=== PATIENT | male | born 1960 | race Caucasian/White ===

== ENCOUNTER 2018-01-03 21:33 | Inpatient (IN) | payer OTHER, MEDICAID ==
[~2018-01-03] VITALS: Ht 170.2 cm; Wt 50.8 kg
--- NOTE | 2018-01-03 21:46 | NUR ---
BIBA TO ER BED 1
[2018-01-03 21:47] VITALS: BP 81/53
--- NOTE | 2018-01-03 21:50 | NUR ---
Patient being evaluated by DR. HERMOSILLO at bedside.
[2018-01-03] MEDS ORDERED: ALBUTEROL SULFATE/IPRATROPIU 3 ML SOL IH ONE (22:00)
[2018-01-03] MEDS ORDERED: NACL 0.9% 1,000 ML IV ONE (22:00)
[2018-01-03 22:18] LABS: HEMATOCRIT 28.4 % (36-52); HEMOGLOBIN 9.3 g/dL (12.0-18.0); MEAN CORPUSCULAR HEMOGLOBIN 26 pg (27-31); MEAN CORPUSCULAR HGB CONC 33 g/dL (33-37); MEAN CORPUSCULAR VOLUME 80 fL (80-94); PLATELET COUNT (AUTO) 289 K/uL (140-450); RED BLOOD CELL COUNT(AUTO) 3.55 MIL/uL (4.20-6.10); RED CELL DISTRIBUTION WIDTH 18.2 % (11.6-13.7); WHITE BLOOD COUNT (AUTO) 14.3 K/uL (4.8-10.8)
--- NOTE | 2018-01-03 22:23 | NUR ---
57Y/M PT BIBA TO ED WITH C/O SOB, DESTAURATION. PER EMS; PT. WAS FOUND SOB, DESATURATION O2 SAT 83%, PLACE PT. ON NON REBREATHING MASK 15 LPM O2 SAT 95%, BS 130 ONSCENE. HX. HTN, HYPOTHYROIDISM, MENTAL DELAYED, QUADRIPLEGIS, LT. BUTTOCK ULCER S/P I AND D ON LEVOFLOXAXIN AND AUGMENTIN. PT. ALERT, RESPONS TO TOUCH, UNABLE TO MAKE NEEDS KNOWN NOR FOLLOW COMMANDS. RESPIRTAIONS ON NON REBRETAHING MASK 15 LPM, LABORED WITH TACHYPNIA, RR32,O 2 SAT 97%, BL LUNG CLEAR. SKIN WARM AND DRY, BUTTOCK PRESSURE ULCER, COVER WITH DRESSING. ER MD MADE AWARE OF PT. STATUS.
[2018-01-03 22:26] LABS: ANION GAP 15.4 (8-16); CARBON DIOXIDE 22.3 mmol/L (21-32); CREATININE 0.7 mg/dL (0.7-1.3); POTASSIUM 3.7 mmol/L (3.5-5.1)
[2018-01-03] MEDS ORDERED: MEGESTROL 400 MG/10 ML PO (22:30)
[2018-01-03] MEDS ORDERED: LACT-2 PO (22:30)
[2018-01-03] MEDS ORDERED: [UNRECOGNIZED DRUG - OTHER] PO (22:30)
[2018-01-03] MEDS ORDERED: ASCO500T45 PO (22:30)
[2018-01-03] MEDS ORDERED: ALEN70TA1 PO (22:30)
[2018-01-03] MEDS ORDERED: FERR325E14 PO (22:30)
[2018-01-03] MEDS ORDERED: DIT5 PO (22:30)
[2018-01-03] MEDS ORDERED: LEVO250T71 PO (22:30)
[2018-01-03] MEDS ORDERED: TRAZ-286 PO (22:30)
[2018-01-03] MEDS ORDERED: CALC-1214 PO (22:30)
[2018-01-03] MEDS ORDERED: SYN.05 PO (22:30)
[2018-01-03] MEDS ORDERED: LUBI24SG4 PO (22:30)
[2018-01-03] MEDS ORDERED: AUGMENTIN PO (22:30)
[2018-01-03] MEDS ORDERED: BACL10TA4 PO (22:30)
[2018-01-03] MEDS ORDERED: CRAN450C PO (22:30)
[2018-01-03] MEDS ORDERED: LOV40I SUBQ (22:30)
[2018-01-03] MEDS ORDERED: METO25TA PO (22:30)
[2018-01-03 22:32] LABS: ALBUMIN 2.4 g/dL (3.4-5.0); TOTAL BILIRUBIN 0.3 mg/dL (0.0-1.0)
[2018-01-03 22:41] LABS: LYMPHOCYTES % (MANUAL) 4 % (20-46); MONOCYTES % (MANUAL) 1 % (5-12)
--- NOTE | 2018-01-03 23:10 | NUR ---
STRAIGHT CATH FOR UA. PT. HAVE SMALL BM.
[2018-01-03 23:28] LABS: APPEARANCE,URINE CLEAR (CLEAR); BILIRUBIN,URINE NEGATIVE (NEGATIVE); BLOOD, URINE NEGATIVE (NEGATIVE); COLOR,URINE YELLOW (YELLOW); LEUKOCYTE ESTERASE ,URINE NEGATIVE (NEGATIVE); NITRITE, URINE NEGATIVE (NEGATIVE); UGLUCOSE NEGATIVE (NEGATIVE)
--- NOTE | 2018-01-03 23:36 | NUR ---
BP 81/51 P107, DR. HERMOSILLO MADE AWARE, NEW ORDER RECIEVED; NSS 1000 ML IV WIDE OPEN.
[2018-01-04] MEDS ORDERED: PIPERACILLIN/TAZOBACTAM 4.5 GM in DEXTROSE 5% 100 ML IV ONE (00:10)
[2018-01-04] MEDS ORDERED: PIPERACILLIN/TAZOBACTAM 2.25 GM VIAL IV ONE (00:12)
[2018-01-04] MEDS ORDERED: NACL 0.9% 1,000 ML IV ONE (00:15)
--- NOTE | 2018-01-04 00:36 | NUR ---
Patient appears to be resting comfortably in bed. Vital Signs within normal limits. Respirations even and unlabored.
[2018-01-04] MEDS ORDERED: ACETAMINOPHEN 325 MG TAB PO PRN (02:10)
[2018-01-04] MEDS ORDERED: HYDROcodone/APAP 7.5/325 MG 1 TAB PO PRN (02:10)
[2018-01-04] MEDS ORDERED: ONDANSETRON 4 MG/2 ML VIAL IVP PRN (02:10)
[2018-01-04] MEDS ORDERED: PIPERACILLIN/TAZOBACTAM 3.375 GM in DEXTROSE 5% 50 ML IV ONE ×2 (02:20→06:00)
[2018-01-04 02:35] VITALS: BP 115/69
--- NOTE | 2018-01-04 02:35 | NUR ---
Patient will be admitted to care of . Admited to TELEMETRY. Will go to [id number]. Belongings list completed. Report to MICHAEL REARDON.
--- NOTE | 2018-01-04 02:36 | NUR ---
RECEIVED FROM ER PER BRENDA PT. DX. OF SEPSIS DECUBITUS. MENTALLY CHALLENGED MALE , 57 YEARS OLD, APHASIC WITH IVF SITE TO LEFT FOREARM # 18. INTACT AND WITH GOOD BLOOD RETURN. ON 02 AT 15 FLOW RATE WITH 02 SAT 100 % ON NRM. AFEBRILE. NEEDS WILL BE ANTICIPATED AND WILL BE MET. WILL BE TURNED Q 2H. TOTAL CARE. HX. OF QUADRAPLEGIA, HTN , THYROID DSE. DECUBITUS TO LEFT HIP AND LEFT BUTTOCK. TELEMETRY MONITORING. LOW ST IN FLORAL DEPARTMENT SPECIALIST. PT. AWAKE AND OPENS EYES. MRSA NARES SPECIMEN COLLECTED. NO NOTED ADVERSE REACTIONS TO IVF ANTIBIOTIC GIVEN IN ER.
[2018-01-04 02:42] LABS: CHOL/HDL RATIO 3.6 (1-4.5); FREE T4 (FREE THYROXINE) 1.19 ng/dL (0.76-1.46); MAGNESIUM 1.7 mg/dL (1.8-2.4); PHOSPHORUS 3.3 mg/dL (2.5-4.9); THYROID STIMULATING HORMONE 3.22 uIU/mL (0.34-3.74)
--- NOTE | 2018-01-04 04:00 | NUR ---
PT. NOTED WITH REDNESS TO SCAPULAR RIGHT SIDE AREA, LATERAL RIGHT FOOT REDNESS AND LEFT HEEL REDNESS. PICTURES TAKEN. MADE CHARGE NURSE AWARE OF IT. TURNED TO SIDES Q 2H AND PILLOW SUPPORT TO PRESSURE AREAS.
[2018-01-04] MEDS ORDERED: ALBUTEROL SULFATE/IPRATROPIU 3 ML SOL IH PRN (04:20)
--- NOTE | 2018-01-04 04:30 | NUR ---
SPOKE WITH DR. ACOSTA ON PATIENT MENTAL STATUS THAT PATIENT WILL NOT BE UNABLE TO PERFORM INCENTIVE SPIROMETER AND STATED HE WILL D/C ORDER FOR INCENTIVE SPIROMETER
--- NOTE | 2018-01-04 04:30 | NUR ---
INFORMED MD RESIDENT FOR DVT SCORING . AWARE AND STATED THAT HE WILL ORDER HEPARIN SQ.
[2018-01-04 04:52] LABS: PROTHROMBIN TIME 12.4 secs (10.8-13.4)
[2018-01-04] MEDS: NACL 0.9% 1,000 ML IV SCH ×2 (05:18→15:26)
[2018-01-04] MEDS ORDERED: PIPERACILLIN/TAZOBACTAM 3.375 GM VIAL IV ONE ×2 (05:20→05:21)
[2018-01-04] MEDS: LEVOTHYROXINE 0.05 MG TAB PO SCH (05:36)
[2018-01-04] MEDS ORDERED: ALENDRONATE SODIUM 70 MG TAB PO SCH (06:30)
[2018-01-04] MEDS: ALBUTEROL SULFATE/IPRATROPIU 3 ML SOL IH SCH ×3 (06:54→18:57)
--- NOTE | 2018-01-04 07:36 | NUR ---
ENDORSED TO THE NEXT RN FOR CONTINUITY OF CARE. ON BREATHING TREATMENTS. NEEDS ALL ANTICIPATED AND MET. TELEMETRY MONITORING.
--- NOTE | 2018-01-04 07:36 | NUR ---
RECEIVED REPORT FROM CENTER RECEPTIONIST NURSE CARON AT BEDSIDE FOR CONTINUITY OF CARE. PT IS AWAKE AND APHASIC. CURRENTLY GETTING BREATHING TX FROM RT. O2 SAT 100% ON NONREBREATHER MASK 15L/MIN. PT HAS PRODUCTIVE COUGH. DRESSING TO LEFT HIP DRY AND INTACT. REDNESS TO R SHOULDER, SACRAL REDNESS AND R LATERAL FOOT REDNESS NOTED. SKIN IS WARM AND DRY. ON NS @ 75ML/HR IV TO L HAND 18G INTACT. NO SIGNS OF RESPIRATORY DISTRESS. WILL CONTINUE TO MONITOR.
[2018-01-04 08:00] VITALS: BP 124/77
[2018-01-04] MEDS: DOCUSATE SODIUM 100 MG GELCAP PO SCH ×2 (09:00→21:00)
[2018-01-04] MEDS: BACLOFEN 10 MG TAB PO SCH ×2 (09:00→21:00)
[2018-01-04] MEDS: LACTOBACILLUS RHAMNOSUS GG 1 EACH CAP PO SCH (09:00)
[2018-01-04] MEDS: FERROUS SULFATE 325 MG TABEC PO SCH (09:00)
[2018-01-04] MEDS: METOPROLOL 25 MG TAB PO SCH ×2 (09:00→21:00)
[2018-01-04] MEDS: ASCORBIC ACID 500 MG TAB PO SCH (09:00)
--- NOTE | 2018-01-04 09:00 | NUR ---
PATIENT HAS BEEN SCREENED AND CATEGORIZED HIGH NUTRITION RISK. PATIENT WILL BE SEEN WITHIN 1-2 DAYS OF ADMISSION. 01/04/19-01/05/[address]
[2018-01-04] MEDS: ENOXAPARIN 40 MG/0.4 ML SYR SUBQ SCH (10:22)
--- NOTE | 2018-01-04 10:22 | NUR ---
NON-ADMINISTERED PO MEDS. OPENED MEDS AND CRUSHED PILLS BUT PT UNABLE TO TAKE MEDS MEDS. PT IS AWAKE AND NONVERBAL. RESTING COMFORTABLY IN BED NOW. WILL CONTINUE TO MONITOR.
--- NOTE | 2018-01-04 10:30 | NUR ---
WOUND CARE EVALUATION NOTES: REASON FOR EVALUATION: PRESSURE ULCERS COMPLETE SKIN ASSESSMENT BY 2 RN IS DONE ON THIS 57Y/O MALE PATIENT [place] [facility] [place] [facility], WITH INITIAL DIAGNOSIS OF HYPOXIA. 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 ALL ABOVE INFORMATION WAS OBTAINED FROM THE ADMISSION H&P. LABS ARE WBC 14.3, H/H 9.3/28.4, GLUCOSE 133, ALBUMIN 2.4. PATIENT IS AWAKE, SKIN WARM TO TOUCH WNL, THICKENED TOENAILS, NO EDEMA, NO HAIR GROWTH AND BILATERAL PEDAL PULSES PRESENT. BLE CONTRACTURES , INCONTINENT BOWEL AND BLADDER, NEEDS ASSISTANCE IN TURNING. PLAN OF CARE AND PRESSURE PREVENTIVE MEASURES DISCUSSED WITH PRIMARY RN. INTEGUMENTARY: -BILATERAL HEELS BLANCHABLE REDNESS -RIGHT EAR PU STAGE 1, NON-BLANCHABLE REDNESS -SACRALCOCCYX PU STAGE 1, NON-BLANCHABLE REDNESS 2X3 CM -RIGHT POSTERIOR SHOULDER PU STAGE 2, 2 PARTIAL THICKNESS LOSS OF DERMIS WITH LARGEST 1.5X1.5 X0.1 CM WOUND BED PINK, DRY, NO ODOR, SURROUNDING REDNESS 5X5CM REDNESS -LEFT SCAPULAR PU UN-STAGEABLE, 2X3CM WITH 90% YELLOW SLOUGH, SMALL AMOUNT PURULENT DRAINAGE, NO ODOR, SURROUNDING REDNESS 3X4 CM -LEFT TROCHANTER PU UN-STAGEABLE, 7.5X7 CM DEPTH UTD, WOUND BED WITH 100% OF BROWN, YELLOW SLOUGH COVERED, WOUND EDGE TO 1 O'CLOCK ESCHAR TISSUE, UNDERMINING BETWEEN 4-9 O'CLOCK WITH DEEPEST AT 7 O'CLOCK 1CM DEEP, SMALL AMOUNT PURULENT DRAINAGE, NO ODOR, SURROUNDING REDNESS 9X8 CM INDICATED FURTHER DAMAGE RECOMMENDATIONS: -SURGEON TO CONSULT FOR DEBRIDEMENT -WOUND CULTURE -APPLY HYDRAGUARD TO RIGHT EAR AND BILATERAL HEELS BLANCHABLE REDNESS BID WC -CLEANSE SACRALCOCCYX PU WITH SOAP AND WATER, PAT DRY AND APPLY OPTIFORM Q7 DAYS AND PRN IF SOILING -CLEANSE RIGHT POSTERIOR SHOULDER PU WITH NS, PAT DRY, APPLY OPTIFORM Q 7 DAYS AND PRN IF SOILING -CLEANSE LEFT SCAPULAR PU WITH NS, PAT DRY, APPLY THERAHONEY GEL, COVER WITH ADAPTIC, AND DRY DRESSING SECURE WITH TAPE Q DAY AND PRN IF SOILING -CLEANSE LEFT TROCHANTER PU WITH NS AND GAUZE, PAT DRY, APPLY THERAHONEY GEL, COVER WITH ADAPTIC AND DRY DRESSING SECURE WITH TAPE Q DAY AND PRN IF SOILING -TURN AND REPOSITION PATIENT Q2H AND OFFLOAD RIGHT EAR AND LEFT HIP -ASSESS AND MONITOR SKIN CONDITION DURING POSITION CHANGE, PLEASE PAY ATTENTION TO RIGHT EAR, SACRALCOCCYX, LEFT HIP AND HEELS -OFFLOAD BILATERAL HEELS BY PLACING PILLOWS UNDER CALVES AT ALL TIMES, UNLESS OTHERWISE CONTRAINDICATED -PRESSURE REDISTRIBUTION SURFACE THERAPY -KEEP SKIN CLEAN AND DRY AT ALL TIMES. -RD TO CONSULT RECOMMENDATIONS DISCUSSED WITH PRIMARY RN WILL FOLLOW UP PATIENT Q 7 -10 DAYS AND PRN. PLEASE CONTACT WOUND CARE NURSE FOR ANY CONCERNS AND CHANGES IN WOUND CONDITION
[2018-01-04 12:00] VITALS: BP 94/56
[2018-01-04] MEDS: PIPER/TAZO 3.375GM/D5W PREMIX 50 ML IV SCH ×2 (12:36→21:34)
--- NOTE | 2018-01-04 12:39 | NUR ---
01/04/2018 RD INITIAL ASSESSMENT COMPLETED PLEASE REFER TO NUTRITION ASSESSMENT UNDER CARE ACTIVITY FOR ESTIMATED NUTRITIONAL NEEDS. 1.NURSING TO ASSIST WITH MEALS. 2.REGULAR DIET, BOOST TID WHEN MEDICALLY APPROPRIATE. 3.SWALLOW EVAL TO DETERMINE APPROPRIATE TEXTURES/ THICKNESS OF FOODS. 4.MAY BENEFIT FROM MULTIVITAMIN WELL TO PROMOTE WOUND HEALING. 5.PT WILL BENEFIT FROM SERRANO RESUMPTION OF PO INTAKE SOON MEDICALLY APPROPRIATE. RD TO FOLLOW-UP IN 2-3 DAYS PATIENT IS HIGH RISK. LUBNA TAM RD
--- NOTE | 2018-01-04 12:40 | NUR ---
SATURATION 100% ON SUPPLEMENTAL OXYGEN AT 15 LPM VIA NONREBREATHER POST HHN THERAPY TITRATED FIO2 TO 50% VIA VENTI MASK MANAGER SCIENCE TO MONITOR LORRAINE/MICHAEL HOFFMAN
--- NOTE | 2018-01-04 12:48 | NUR ---
SATURATION 98% ON SUPPLEMENTAL OXYGEN AT 15 LPM VIA VENT MASK ANIMAL SURGEON WILL CONTINUE TO MONITOR LORRAINE/RN NOTIFIED
--- NOTE | 2018-01-04 13:30 | NUR ---
MADE DR. CONWAY AWARE UNABLE TO TEST IF PT CAN TOLERATE FLUIDS OR MEDS PO. STILL PENDING SWALLOW EVAL. EXAMINED PT'S WOUNDS AFTER WOUND EVAL DONE.
--- NOTE | 2018-01-04 13:43 | NUR ---
SATURATION 98% ON SUPPLEMENTAL OXYGEN 15 LPM VIA VENTI MASK TITRATED FIO2 TO 40%/12 LPM LORRAINE/RN NOTIFIED
--- NOTE | 2018-01-04 15:03 | NUR ---
TRANSFERRED PT TO WOUND BED. REPOSITIONED PT TO RIGHT LATERAL. CHANGED DRESSING TO RIGHT SCAPULA AND UPPER BACK TO OPTIFOAM DRESSING. NO SIGNS OF RESPIRATORY DISTRESS. PT SLEEPING IN BED. WILL CONTINUE TO MONITOR.
[2018-01-04] MEDS ORDERED: FERRIC GLUCONATE 125 MG in NACL 0.9% 100 ML IV SCH (15:18)
[2018-01-04] MEDS ORDERED: MAG SULF 2000 MG/WATER PREMIX 100 ML IV SCH (15:27)
[2018-01-04] MEDS ORDERED: LIDOCAINE 1% ***ER ONLY *** 10 MG/ML VIAL INJ SCH (15:42)
[2018-01-04 16:00] VITALS: BP 116/67
--- NOTE | 2018-01-04 16:22 | NUR ---
SPEECH THERAPY DISCUSSED PT WITH NURSING (MICHAEL PETERS) AND CLEARED FOR SWALLOW EVAL. TRIALED HTL, NTL AND PUREE TEXTURES WITH PT VIA SPOON USING SMALL BITES/SIPS. DESPITE USE OF SAFE SWALLOW STRATEGIES, PT HAD OVERT S/S OF ASPIRATION (COUGHING) FOLLOWING ALL TRIALS/CONSISTENCIES. RECOMMEND NPO AT THIS TIME. CONSIDER ALTERNATIVE MEANS OF NUTRITION/HYDRATION. [id number] [id number] NOMS LEVEL 1 [id number]
--- NOTE | 2018-01-04 17:00 | NUR ---
DR. ALONZO CALLED. RECEIVED ORDER TO OBTAIN CONSENT FOR DEBRIDEMENT OF LEFT TROCHANTERIC DECUBITUS ULCER AND PLACE PT NPO AFTER MIDNIGHT.
--- NOTE | 2018-01-04 17:40 | NUR ---
CALLED (WEBFED OFFSET PRESS OPERATOR FROM [facility]) [phone] AND LEFT MESSAGE TO OBTAIN CONSENT AND PT HX. LEFT CALL BACK NUMBER.
--- NOTE | 2018-01-04 19:30 | NUR ---
ENDORSED PT TO PHOTO RETOUCHER NURSE ARVIN AT BEDSIDE FOR CONTINUITY OF CARE. PT IN STABLE CONDITION.
--- NOTE | 2018-01-04 19:31 | NUR ---
RECEIVED BEDSIDE REPORT FROM DAY SHIFT NURSE LORRAINE RN, PT STABLE, NO DISTRESS NOTED, IV TO L HAND 18 G RUNNING MAGNESIUM AT 25ML/HR, INFUSING WELL, PT ON REBREATHER MASK WITH 35% FiO2, NO SOB, DRESSINGS INTACT, INITIAL ASSESSMENT DONE, ALL SAFETY PRECAUTION MET, WILL CONTINUE TO MONITOR.
[2018-01-04 20:00] VITALS: BP 113/56
[2018-01-04] MEDS: OXYBUTYNIN 5 MG TAB PO SCH (21:00)
[2018-01-04] MEDS: traZODone 50 MG TAB PO SCH (21:00)
--- NOTE | 2018-01-04 21:34 | NUR ---
DUE MEDICATION GIVEN, PT TOLERATED WELL, PO MEDICATION NOT GIVEN, PT WAS NOT ABLE TO SWALLOW, PT DID NOT PASS SWALLOW EVAL, PO MEDICATION HELD. PT STABLE, NO DISTRESS NOTED, CALL LIGHT WITHIN REACH, WILL CONTINUE TO MONITOR.
--- NOTE | 2018-01-04 21:45 | NUR ---
DR. ALONZO SAW PT, ATTEMPTED TO CALL SISTER NGOZI AT [phone] WAS TOLD THAT IT IS THE WRONG NUMBER, ATTEMPTED TO CALL [facility], [facility] SAID THAT THEY DON'T HAVE HIS CHART AND WOULD NOT BE ABLE TO GIVE THE CONSENT.
--- NOTE | 2018-01-04 23:40 | NUR ---
CHECKED ON PT, PT AWAKE, NO DISTRESS NOTED, CALL LIGHT WITHIN REACH, WILL CONTINUE TO MONITOR.
[2018-01-05] VITALS: BP 100/59
[2018-01-05] MEDS: NACL 0.9% 1,000 ML IV SCH ×2 (01:48→18:06)
--- NOTE | 2018-01-05 01:48 | NUR ---
IV FLUID CHANGED, PT AWAKE, STABLE, NO DISTRESS NOTED, CALL LIGHT WITHIN REACH, WILL CONTINUE TO MONITOR.
[2018-01-05 04:00] VITALS: BP 108/61
[2018-01-05] MEDS: PIPER/TAZO 3.375GM/D5W PREMIX 50 ML IV SCH ×3 (04:48→20:58)
--- NOTE | 2018-01-05 04:48 | NUR ---
DUE MEDICATION GIVEN, PT TOLERATED WELL, NO DISTRESS NOTED, CALL LIGHT WITHIN REACH, WILL CONTINUE TO MONITOR.
--- NOTE | 2018-01-05 05:36 | NUR ---
SYNTHROID PO NOT GIVEN, PT UNABLE TO SWALLOW, PT STABLE, NO DISTRESS NOTED, CALL LIGHT WITHIN REACH WILL CONTINUE TO MONITOR./
[2018-01-05] MEDS: LEVOTHYROXINE 0.05 MG TAB PO SCH (05:51)
[2018-01-05 06:49] LABS: BASOPHILS % (AUTO) 0.3 % (0.0-2.0); EOSINOPHILS # (AUTO) 0.2 K/uL (0-0.4); HEMOGLOBIN 8.1 g/dL (12.0-18.0); LYMPHOCYTES # (AUTO) 0.7 K/uL (2.0-11.5); LYMPHOCYTES % (AUTO) 9.5 % (20.5-51.1); MEAN CORPUSCULAR HEMOGLOBIN 27 pg (27-31); MEAN CORPUSCULAR HGB CONC 33 g/dL (33-37); MEAN CORPUSCULAR VOLUME 82 fL (80-94); MONOCYTES # (AUTO) 0.5 K/uL (0.8-1.0); MONOCYTES % (AUTO) 6.5 % (1.7-9.3); NEUTROPHILS # (AUTO) 6.2 K/uL (1.8-7.7); NEUTROPHILS % (AUTO) 80.7 % (42.2-75.2); PLATELET COUNT (AUTO) 263 K/uL (140-450); RED BLOOD CELL COUNT(AUTO) 3.06 MIL/uL (4.20-6.10); RED CELL DISTRIBUTION WIDTH 18.3 % (11.6-13.7); WHITE BLOOD COUNT (AUTO) 7.6 K/uL (4.8-10.8)
--- NOTE | 2018-01-05 07:30 | NUR ---
ENDORSED PLAN OF CARE TO DAY SHIFT NURSE SCOUT RODRIGUEZ, PT STABLE, NO DISTRESS NOTED, CALL LIGHT WITHIN REACH.
--- NOTE | 2018-01-05 07:35 | NUR ---
RECEIVED REPORT FROM ADMITTING CLERK NURSE. PT IS SLEEPING IN BED AT THIS TIME, BUT EASILY AWAKEN, PT IS AAOX1, APHASIC, BEDBOUND, PT HAS IV ON THE HIS LEFT HAND, IV APPEARS TO BE INFILTRATED, HAND IS SWOLLEN, WILL DC IV AT THIS TIME AND INSERT A NEW IV. PT HAS KARTHIK UPPER AND LOWER EXT. CONTRACTURES, PT IS ON A VENTURI MASK, PT HAS A LEFT TROCHANTER DECUBITUS WOUND, SACRAL REDNESS, LEFT SCAPULA PRESSURE ULCER, RIGHT SHOULDER PRESSURE ULCER, RIGHT FOOT ERYTHEMA AND RIGHT EAR WOUND RETORT KILN BURNER, NO S/S OF RESPIRATORY DISTRESS OR DISCOMFORT NOTED, SAFETY/FALL PRECAUTIONS ARE IN PLACE, CALL LIGHT IS WITHIN REACH, WILL CONTINUE TO MONITOR.
[2018-01-05 08:00] VITALS: BP 132/74
--- NOTE | 2018-01-05 08:09 | NUR ---
FIO2 TITRATED TO 30% VENTURI MASK, SPO2 96%. PT IS NOT SOB AND NOT IN RESPIRATORY DISTRESS. WILL CONTINUE TO MONITOR.
[2018-01-05 08:12] LABS: ANION GAP 14.3 (8-16); CARBON DIOXIDE 22.9 mmol/L (21-32); POTASSIUM 3.2 mmol/L (3.5-5.1)
[2018-01-05 08:13] LABS: CREATININE 0.5 mg/dL (0.7-1.3)
[2018-01-05] MEDS: ALBUTEROL SULFATE/IPRATROPIU 3 ML SOL IH SCH ×3 (08:16→20:05)
[2018-01-05 08:42] LABS: MAGNESIUM 2.9 mg/dL (1.8-2.4); PHOSPHORUS 2.4 mg/dL (2.5-4.9)
[2018-01-05] MEDS: DOCUSATE SODIUM 100 MG GELCAP PO SCH ×2 (09:00→21:00)
[2018-01-05] MEDS: LACTOBACILLUS RHAMNOSUS GG 1 EACH CAP PO SCH (09:00)
[2018-01-05] MEDS: BACLOFEN 10 MG TAB PO SCH ×2 (09:00→21:00)
[2018-01-05] MEDS: METOPROLOL 25 MG TAB PO SCH ×2 (09:00→21:00)
[2018-01-05] MEDS: ENOXAPARIN 40 MG/0.4 ML SYR SUBQ SCH (09:00)
[2018-01-05] MEDS: ASCORBIC ACID 500 MG TAB PO SCH (09:00)
--- NOTE | 2018-01-05 09:00 | NUR ---
NEW IV INSERTED ON THE RIGHT WRIST, GAUGE 22, PT TOLERATED WELL, IV FLUSHING WELL, BLOOD RETURN. WILL CONTINUE TO MONITOR.
[2018-01-05] MEDS: FERROUS SULFATE 325 MG TABEC PO SCH (09:14)
--- NOTE | 2018-01-05 10:35 | NUR ---
PT TAKEN OFF OF VENTURI MASK AND PLACED 2L NC ON PT. SPO2 98%. PT IS NOT SOB AND NOT DEMONSTRATING ANY SIGNS/SYMPTOMS OF RESPIRATORY DISTRESS. WILL CONTINUE TO MONITOR.
--- NOTE | 2018-01-05 10:37 | NUR ---
CALLED THE PATIENT'S SISTER FAROOQ AT THE NEW NUMBER I WAS GIVEN . I REACHED HER VOICEMAIL, I LEFT HER A MESSAGE LETTING HER KNOW I WAS CALLING FROM [facility]. I LEFT HER THE NUMBER TO SHE NURSES STATION AND MY EXTENSION. I LET HER KNOW IT WAS REGARDING OBTAINING A CONSENT FOR WOUND DEBRIDEMENT.
[2018-01-05 12:00] VITALS: BP 134/65
--- NOTE | 2018-01-05 12:00 | NUR ---
PT RESTING IN BED, NO S/S OF RESPIRATORY DISTRESS OR DISCOMFORT NOTED, CALL LIGHT WITHIN REACH.
[2018-01-05] MEDS ORDERED: POTASSIUM CHLORIDE 40 MEQ, LIDOCAINE 1% 25 MG in NACL 0.9% 250 ML IV SCH (12:30)
--- NOTE | 2018-01-05 13:12 | NUR ---
CM NOTE CHART REVIEWED FOR ADMISSION CRITERIA. PER [facility]# [phone] , PATIENT CAN GO TO [address] BLAIR WHEN DISCHARGED IF WITH NO ISOLATION.
--- NOTE | 2018-01-05 13:30 | NUR ---
PT DUE MEDICATION GIVEN, PT TURNED FOR COMFORT, ALL NEEDS MET AT THIS TIME, CALL LIGHT WITHIN REACH, WILL CONTINUE TO MONITOR.
--- NOTE | 2018-01-05 13:56 | NUR ---
I SPOKE TO THE PATIENT'S SISTER FAROOQ, SHE GAVE ME HER CELL PHONE NUMBER [phone]. I LET HER KNOW I WAS CALLING TO OBTAIN CONSENT FOR A DEBRIDEMENT AND A PEG TUBE. PER FAROOQ THE PATIENT ALREADY HAD A DEBRIDEMENT DONE LAST WEEK AT [facility] BY DR. PRETTY. FAROOQ SAID TO HOLD OFF ON THE CONSENT BECAUSE HE DID NOT NEED IT AND WOULD BE COMING IN TO SEE THE PATIENT TOMORROW.
--- NOTE | 2018-01-05 14:10 | NUR ---
I LET DR. CONWAY KNOW I HAD SPOKEN TO THE PATIENT'S SISTER FAROOQ. I ALSO LET HIM KNOW I WAS TOLD TO HOLD OFF ON THE CONSENTS AND PATIENT'S SISTER SAID SHE WOULD BE COMING IN TOMORROW, 01/06/18. I WENT AHEAD AND GAVE DR. CONWAY AND DR. JANA TRIVEDI'S CELL PHONE NUMBER [phone].
--- NOTE | 2018-01-05 15:30 | NUR ---
utility worker roller shop notes: I contacted Patient's SNF([facility])to gather information about patient. I spoke to Shyanne who stated that patient is a new resident from [facility] ([facility]) and there was limited information that can provide at that time; she also stated that Patient has just arrived to [facility] on 01/03/18 from a previous placement at [place] "[facility]" where he resided from about 2 years and recently had to be move due to increase level of care needed for patient. [facility] Shyanne stated that patient is on a 7 day bed hold and will able to return to facility when patient is stable and ready for discharge. I asked for family information and I was provided with Patient's sister Veronica Hicks I thank [facility] staff for information and ended the call.
[2018-01-05 16:00] VITALS: BP 122/59
--- NOTE | 2018-01-05 16:00 | NUR ---
PT RESTING IN BED AT THIS TIME, PT TURNED FOR COMFORT, NO S/S OF RESPIRATORY DISTRESS OR DISCOMFORT NOTED, CALL LIGHT WITHIN REACH.
--- NOTE | 2018-01-05 16:10 | NUR ---
I contact Patient's sister Veronica Hicks who stated been Patient's healthcare decision maker and having a power of student life coordinator. I introduce My self and role as a Film Processing Utility Worker and gather information about Patient. Per Mrs. Hicks Patient has been in the system since he was a minor; Due to his disabilities and their mother been unable to care for Patient. He was placed on a senior living in [facility] and stay there for many years until moved to the senior living in [place] by his "Crew Chief" Patient's sister stated been unsure if patient has [facility] and was unable to provide the spring encaser. Mrs. Hicks however; stated that she can has power of student life coordinator and can make medical decisions for her brother. She agreed to provide documentation and ask nurses to place on chart. Patient's sister reported that she is care giving for their mother who also disable and needs care and she is unable to do the same for patient at this time however; still visit's him when she is able. She reported coming to see patient at [facility]. Per Patient's sister patient will return to current facility [facility] after his discharge. Patient's sister had no questions at the time. Crew Chief and/or community outreach manager will follow up as needed.
--- NOTE | 2018-01-05 18:44 | NUR ---
PT RESTING IN BED, CALL LIGHT WITHIN REACH.
[2018-01-05] MEDS: MUPIROCIN 2% OINT 22 GM TUBE TP SCH (19:00)
--- NOTE | 2018-01-05 19:12 | NUR ---
ENDORSED PT TO INDUSTRIAL/ORGANIZATIONAL PSYCHOLOGIST NURSE FOR CONTINUITY OF CARE. PT STABLE AT THIS TIME.
--- NOTE | 2018-01-05 19:20 | NUR ---
RECEIVED REPORT FROM AM NURSE. PT RESTING IN BED, AWAKE, APHASIC, UNABLE TO VERBALIZE NEEDS, BEDBOUND, SPASTIC CONTRACTURES ALL EXTREMITIES NOTED. SYSTEMS INTEGRATION MANAGER IN PLACE. SPO2 97% ON ROOM AIR, RR 20 EVEN AND UNLABORED. SEE WOUND ASSESSMENT FOR WOUNDS. SCDs IN PLACE. BL HEEL PROTECTORS IN PLACE. IV ACCESS ASYMPTOMATIC, PATENT AND INTACT. IVF INFUSING WELL. ALL NEEDS MET. SAFETY MEASURES ENSURED. CALL LIGHT WITHIN REACH.
[2018-01-05] MEDS: CHLORHEXADINE GLUC 2% CLOTH TP SCH (19:45)
[2018-01-05 20:00] VITALS: BP 123/70
[2018-01-05] MEDS: traZODone 50 MG TAB PO SCH (21:00)
[2018-01-05] MEDS: OXYBUTYNIN 5 MG TAB PO SCH (21:00)
--- NOTE | 2018-01-05 21:01 | NUR ---
HELD DUE PO MEDS D/T DYSPHAGIA AND PT NPO. ADMINISTERED DUE MED ZOSYN IVPB WITH EDUCATION. PT APHASIC, WILL CONTINUE WITH CONSTANT REINFORCEMENT. ALL NEEDS MET. SAFETY MEASURES ENSURED. CALL LIGHT WITHIN REACH.
[2018-01-06] VITALS: BP 130/71
--- NOTE | 2018-01-06 00:30 | NUR ---
PT CLEAN AND DRY, PT TURNED AND REPOSITIONED WITH PRACTICE OFFICE ASSOCIATE, OFFLOADED PRESSURE AREAS. SPO2 99% ON ROOM AIR, RR 22. ALL NEEDS MET. IVF INFUSING WELL. SAFETY MEASURES ENSURED. CALL LIGHT WITHIN REACH.
[2018-01-06 04:00] VITALS: BP 107/60
[2018-01-06] MEDS: PIPER/TAZO 3.375GM/D5W PREMIX 50 ML IV SCH ×3 (04:43→20:20)
--- NOTE | 2018-01-06 04:45 | NUR ---
ADMINISTERED DUE MED ZOSYN IVPB. PT CLEAN AND DRY, PT TURNED AND REPOSITIONED, OFFLOADED PRESSURE AREAS WITH ANIMAL PATHOLOGY TEACHER, PT TOLERATED WELL.ALL NEEDS MET. IVF INFUSING WELL. SAFETY MEASURES ENSURED. CALL LIGHT WITHIN REACH.
[2018-01-06] MEDS: LEVOTHYROXINE 0.05 MG TAB PO SCH (05:44)
[2018-01-06] MEDS: ALBUTEROL SULFATE/IPRATROPIU 3 ML SOL IH SCH ×3 (06:44→19:08)
--- NOTE | 2018-01-06 06:50 | NUR ---
PT HAD NO URINE OUTPUT DURING SHIFT, BLADDER SCAN PERFORMED, READING >880ML. SPOKE WITH DR TOLLIVER, MADE MD AWARE, MD TO ORDER STRAIGHT CATH.
[2018-01-06 07:11] LABS: BASOPHILS # (AUTO) 0.1 K/uL (0.00-0.22); BASOPHILS % (AUTO) 0.7 % (0.0-2.0); EOSINOPHILS # (AUTO) 0.4 K/uL (0-0.4); EOSINOPHILS % (AUTO) 4.3 % (0.0-4.0); HEMATOCRIT 24.8 % (36-52); HEMOGLOBIN 8.1 g/dL (12.0-18.0); LYMPHOCYTES # (AUTO) 0.8 K/uL (2.0-11.5); LYMPHOCYTES % (AUTO) 10.3 % (20.5-51.1); MEAN CORPUSCULAR HEMOGLOBIN 27 pg (27-31); MEAN CORPUSCULAR HGB CONC 33 g/dL (33-37); MEAN CORPUSCULAR VOLUME 82 fL (80-94); MONOCYTES # (AUTO) 0.5 K/uL (0.8-1.0); MONOCYTES % (AUTO) 5.5 % (1.7-9.3); NEUTROPHILS # (AUTO) 6.4 K/uL (1.8-7.7); NEUTROPHILS % (AUTO) 79.2 % (42.2-75.2); PLATELET COUNT (AUTO) 321 K/uL (140-450); RED BLOOD CELL COUNT(AUTO) 3.04 MIL/uL (4.20-6.10); WHITE BLOOD COUNT (AUTO) 8.2 K/uL (4.8-10.8)
--- NOTE | 2018-01-06 07:15 | NUR ---
ENDORSED PLAN OF CARE TO AM NURSE. CONDITION STABLE. AM NURSE TO PERFORM STRAIGHT CATH WITH STUDENT.
--- NOTE | 2018-01-06 07:15 | NUR ---
RECEIVED PATIENT REPORT FROM NIGHTSHIFT NURSE AT BEDSIDE. PATIENT IS AWAKE AND APHASIC. PATIENT IS RIGHT LATERAL POSITION AT THIS TIME. NIGHTSHIFT NURSE ENDORSED CARE TO INSERT A STRAIGHT CATHETER INTO PATIENT. WILL FOLLOW UP WITH ORDER AND RECORD OUTPUT. PATIENT BREATHING IS SYMMETRICAL AND UNLABORED AT THIS TIME. UPDATED BOARDS AND LOWERED BED. WILL CONTINUE TO MONITOR PATIENT.
[2018-01-06 07:19] LABS: FOLIC ACID 15.8 ng/mL (>3.0)
[2018-01-06] MEDS: NACL 0.9% 1,000 ML IV SCH (07:26)
[2018-01-06 07:39] LABS: CREATININE 0.4 mg/dL (0.7-1.3)
[2018-01-06 07:44] LABS: ANION GAP 18.2 (8-16); CARBON DIOXIDE 19.6 mmol/L (21-32); POTASSIUM 3.8 mmol/L (3.5-5.1)
[2018-01-06 07:45] LABS: PHOSPHORUS 2.3 mg/dL (2.5-4.9)
[2018-01-06 08:25] VITALS: BP 131/74
--- NOTE | 2018-01-06 08:25 | NUR ---
INSERTED STRAIGHT CATHETER INTO PATIENT PRACTICING STERILE TECHNIQUE. DRAINED 850 ML OF YELLOW URINE. PATIENT BLOOD PRESSURE IS 131/74. PATIENT TOLERATED WELL.
[2018-01-06] MEDS: METOPROLOL 25 MG TAB PO SCH ×2 (09:00→21:00)
[2018-01-06] MEDS: FERROUS SULFATE 325 MG TABEC PO SCH (09:00)
[2018-01-06] MEDS: LACTOBACILLUS RHAMNOSUS GG 1 EACH CAP PO SCH (09:00)
[2018-01-06] MEDS: DOCUSATE SODIUM 100 MG GELCAP PO SCH ×2 (09:00→21:00)
[2018-01-06] MEDS: BACLOFEN 10 MG TAB PO SCH ×2 (09:00→21:00)
[2018-01-06] MEDS: ASCORBIC ACID 500 MG TAB PO SCH (09:00)
[2018-01-06] MEDS: ENOXAPARIN 40 MG/0.4 ML SYR SUBQ SCH (10:11)
[2018-01-06] MEDS ORDERED: INSULIN LISPRO SLIDING SCALE 100 UNITS/ML VIAL SUBQ PRN (10:20)
[2018-01-06] MEDS ORDERED: DEXTROSE 50% 50 ML SYR IVP PRN (10:20)
[2018-01-06] MEDS: DEXT 5% /NACL 0.9% 1,000 ML IV SCH (10:44)
[2018-01-06] MEDS ORDERED: SODIUM PHOS / POTASSIUM PHOS 1 PKT PDR PO SCH (11:00)
[2018-01-06] MEDS: BLOOD GLUCOSE MONITORING 1 DEV DEV FS SCH ×3 (11:30→20:26)
[2018-01-06 12:20] VITALS: BP 123/67
--- NOTE | 2018-01-06 12:31 | NUR ---
FAMILY AT BEDSIDE. DR. TOLLIVER ABLE TO SPEAK TO PATIENT'S FAMILIY REGARDING HIS HEALTH. PATIENT SHOWS NO SIGNS OF RESPIRATORY DISTRESS OR RESPIRATORY DEPRESSION. WILL CONTINUE TO MONITOR PATIENT.
[2018-01-06] MEDS: MORPHINE SULFATE 4 MG/ML SYR IVP PRN (12:46)
--- NOTE | 2018-01-06 13:23 | NUR ---
pt sleeping with family at bedside no signs of distress noted at this time no hhn given
--- NOTE | 2018-01-06 13:52 | NUR ---
PATIENT BLOOD SUGAR AT 142. WILL CONTINUE TO MONITOR PATIENT.
[2018-01-06 16:00] VITALS: BP 113/50
--- NOTE | 2018-01-06 16:00 | NUR ---
PATIENT IS ASLEEP AT THIS TIME. BREATHING IS EVEN AND UNLABORED. WILL CONTINUE TO MONITOR PATIENT.
--- NOTE | 2018-01-06 16:32 | NUR ---
01/06/18 RD FOLLOW UP COMPLETED PLEASE REFER TO NUTRITION PROGRESS NOTE UNDER CARE ACTIVITY FOR ESTIMATED NUTRITION NEEDS. RD RECOMMENDATIONS: 1- RECOMMEND CONTINUE NPO. 2- WHEN G-TUBE INSERTED AND/OR PT IS MEDICALLY CLEARED FOR NUTRITION SUPPORT, SUGGEST FIBERSOUCE HN @55MLS/HR ([id number], 71G PROTEIN) MEETS >90% NEEDS 3- F/U 2-3 DAYS; HIGH RISK. CHENG HAMEED MBA, RD
--- NOTE | 2018-01-06 18:26 | NUR ---
Social Service Note: Per CHIEF ADMINISTRATIVE OFFICER Cynthia's notes patient's sister Veronica Hicks would like patient to return to [facility] upon discharge. I received a MD's order for hospice eval, I called Veronica, no answer, left message. I faxed hospice eval order to [facility] . Per Helga from [facility], they would follow up with patient and patient's family regarding hospice at their facility. Addendum: 01/06/18 at 1852 by Melina ZACARIAS Correction: Asim Partida from [facility], they will follow up with patient and patient's family regarding hospice at their facility, charge nurse Kristen made aware.
[2018-01-06] MEDS: CHLORHEXADINE GLUC 2% CLOTH TP SCH (19:00)
[2018-01-06] MEDS: MUPIROCIN 2% OINT 22 GM TUBE TP SCH (19:00)
--- NOTE | 2018-01-06 19:10 | NUR ---
GAVE REPORT TO NIGHTSHIFT NURSE AT BEDSIDE. PATIENT IS IN STABLE CONDITION.
--- NOTE | 2018-01-06 19:11 | NUR ---
PATIENT REPORT RECEIVED FROM MORNING NURSE AT BEDSIDE. PATIENT IS AWAKE AND ALERT. APHASIC. NO SIGNS AND SYMPTOMS OF DISTRESS NOTED. FLACC 0. PATIENT IS ON ROOM AIR. IV SITE NOTED ON RIGHT WRIST, IVF FLUID INFUSING WELL. DRESSINGS NOTED ON LEFT HIP AND LEFT SCAPULA, DRESSINGS DRY AND INTACT. PATIENT IS ON WOUND BED. BED IN LOWEST POSITION, SIDE RAILS UP AND CALL LIGHT WITHIN REACH. WILL CONTINUE TO MONITOR.
--- NOTE | 2018-01-06 19:12 | NUR ---
MORNING NURSE STATED PATIENT HAS NOT VOIDED SINCE STRAIGHT CATH WAS DONE IN THE MORNING. WILL NOTIFY DRDivya AND CHECK ORDERS.
[2018-01-06 20:00] VITALS: BP 99/53
[2018-01-06] MEDS: traZODone 50 MG TAB PO SCH (21:00)
[2018-01-06] MEDS: OXYBUTYNIN 5 MG TAB PO SCH (21:00)
--- NOTE | 2018-01-06 22:00 | NUR ---
BLADDER SCAN DONE. BLADDER SCANNER SHOWED >700ML URINE. STRAIGHT CATH DONE ORDERED FOR PRN URINE RETENTION. STERILE TECHNIQUE USED. 1000ML URINE OBTAINED. PATIENT TOLERATED WELL AND REPOSITIONED FOR COMFORT. WILL CONTINUE TO MONITOR.
[2018-01-07] VITALS: BP 103/58
--- NOTE | 2018-01-07 | NUR ---
CHECKED ON PATIENT. PATIENT IS ASLEEP. NO SIGNS AND SYMPTOMS OF DISTRESS NOTED. BREATHING EVEN AND UNLABORED. FLACC 0. WILL CONTINUE TO MONITOR.
[2018-01-07] MEDS: DEXT 5% /NACL 0.9% 1,000 ML IV SCH (00:38)
[2018-01-07 04:00] VITALS: BP 109/75
[2018-01-07] MEDS: PIPER/TAZO 3.375GM/D5W PREMIX 50 ML IV SCH ×2 (04:00→13:47)
--- NOTE | 2018-01-07 04:59 | NUR ---
PATIENT STILL HAS NOT VOIDED ON HIS OWN. USED THE BLADDER SCANNER. SCAN SHOWED >537ML URINE RETAINED. NOTIFIED DR. LUNDBERG. ASKED HIM IF HE WANTED ME TO INSERT A ALEXANDER CATHETER, HE STATED THAT HE WILL SPEAK TO THE MORNING TEAM, AND TO DO STRAIGHT CATH ORDERED FOR PRN URINARY RETENTION.
--- NOTE | 2018-01-07 05:30 | NUR ---
STRAIGHT CATH DONE PER DOCTORS ORDERS, STERILE TECHNIQUE USED. 600ML URINE OBTAINED. PATIENT TOLERATED WELL. PATIENT REPOSITIONED FOR COMFORT. WILL CONTINUE TO MONITOR.
[2018-01-07] MEDS: ALBUTEROL SULFATE/IPRATROPIU 3 ML SOL IH SCH ×3 (06:00→13:22)
[2018-01-07] MEDS: LEVOTHYROXINE 0.05 MG TAB PO SCH (06:30)
[2018-01-07 06:43] LABS: BASOPHILS # (AUTO) 0.1 K/uL (0.00-0.22); EOSINOPHILS # (AUTO) 0.3 K/uL (0-0.4); EOSINOPHILS % (AUTO) 5.4 % (0.0-4.0); HEMATOCRIT 24.3 % (36-52); HEMOGLOBIN 7.9 g/dL (12.0-18.0); LYMPHOCYTES % (AUTO) 17.5 % (20.5-51.1); MEAN CORPUSCULAR HEMOGLOBIN 26 pg (27-31); MEAN CORPUSCULAR HGB CONC 33 g/dL (33-37); MEAN CORPUSCULAR VOLUME 81 fL (80-94); MONOCYTES # (AUTO) 0.5 K/uL (0.8-1.0); MONOCYTES % (AUTO) 8.3 % (1.7-9.3); NEUTROPHILS # (AUTO) 3.7 K/uL (1.8-7.7); NEUTROPHILS % (AUTO) 67.8 % (42.2-75.2); PLATELET COUNT (AUTO) 359 K/uL (140-450); RED BLOOD CELL COUNT(AUTO) 2.99 MIL/uL (4.20-6.10); RED CELL DISTRIBUTION WIDTH 17.9 % (11.6-13.7); WHITE BLOOD COUNT (AUTO) 5.6 K/uL (4.8-10.8)
[2018-01-07 07:03] LABS: ANION GAP 14.7 (8-16); CREATININE 0.5 mg/dL (0.7-1.3); POTASSIUM 3.7 mmol/L (3.5-5.1)
[2018-01-07] MEDS: BLOOD GLUCOSE MONITORING 1 DEV DEV FS SCH ×2 (07:20→11:30)
--- NOTE | 2018-01-07 07:31 | NUR ---
PATIENT REPORT GIVEN TO CHARGE NURSE ZHANG. PATIENT IS IN STABLE CONDITION
--- NOTE | 2018-01-07 07:45 | NUR ---
RECEIVED PATIENT REPORT FROM CHARGE NURSE. PATIENT IS AWAKE AT THIS TIME. PATIENT SHOWS NO SIGNS OF RESPIRATORY DISTRESS OR RESPIRATORY DEPRESSION. PATIENT IS APHASIC. FLACC SCORE IS 0 AT THIS TIME. LOWERED BED AND UPDATED BOARD. PATIENT IS IN STABLE CONDITION AT THIS TIME. WILL CONTINUE TO MONITOR PATIENT.
[2018-01-07 08:00] VITALS: BP 125/64
[2018-01-07] MEDS: FERROUS SULFATE 325 MG TABEC PO SCH (09:00)
[2018-01-07] MEDS: DOCUSATE SODIUM 100 MG GELCAP PO SCH (09:00)
[2018-01-07] MEDS: ASCORBIC ACID 500 MG TAB PO SCH (09:00)
[2018-01-07] MEDS: BACLOFEN 10 MG TAB PO SCH (09:00)
[2018-01-07] MEDS: METOPROLOL 25 MG TAB PO SCH (09:00)
[2018-01-07] MEDS: LACTOBACILLUS RHAMNOSUS GG 1 EACH CAP PO SCH (09:00)
[2018-01-07] MEDS: ENOXAPARIN 40 MG/0.4 ML SYR SUBQ SCH (09:01)
--- NOTE | 2018-01-07 10:35 | NUR ---
PATIENT IS ASLEEP AT THIS TIME. PATIENT RESPIRATIONS ARE EVEN AND UNLABORED. WILL CONTINUE TO MONITOR PATIENT.
--- NOTE | 2018-01-07 10:45 | NUR ---
SPOKE WITH CRISTIN BED COORDINATOR AT [facility] [place] SPOKE HER RN PRESSER AUTOMATIC NAME [facility]SON [facility] ISOLATION BED AT THIS TIME AND THEIR HOSPICE EVALUATION WILL BE AVAILABLE ON MONDAY .
--- NOTE | 2018-01-07 11:26 | NUR ---
ALEXANDER CATHETER INSERTED WITH HELP OF STUDENT AND CLINICAL INSTRUCTOR PRACTICING STERILE TECHNIQUE. PER STUDENT REPORT, NO OUTPUT NOTED AT THIS TIME. WILL CONTINUE TO MONITOR OUTPUT. WILL CONTINUE TO MONITOR PATIENT.
[2018-01-07 12:00] VITALS: BP 136/77
--- NOTE | 2018-01-07 12:13 | NUR ---
PER DR TOLLIVER (RESIDENT) PATIENT IS MRSA NARES COLONIZED FAXED TO [facility] .
--- NOTE | 2018-01-07 13:24 | NUR ---
PT IS ASLEEP HHN NOT GIVEN NO APPARENT DISTRESS
--- NOTE | 2018-01-07 13:56 | NUR ---
SPOKE WITH [facility] RN DITCH RIDER STATED CAN ACCEPT PATIENT AND WILL START HOSPICE EVAL ON MONDAY AT THEIR FACILITY. PATIENT CAN GO TO ROOM 32 B PREFERRED ARRIVAL TIME AFTER 4PM ARRANGE TRANSPORT WITH [facility] CONCRET[facility] SAW OPERATOR TIME 1600
[2018-01-07] MEDS ORDERED: MORP4SOL10 IVP (14:45)
--- NOTE | 2018-01-07 14:46 | NUR ---
SPOKE TO JODIE OGLESBY FROM PHARMACY REGARDING MORPHINE ADMINISTRATION OF PATIENT. AWARE OF .5 ML / 2MG ADMINISTRATION BUT ACCIDENTALLY CLICKED YES WHEN ASKED IF IM GOING TO ADMINISTER 4 MG. WILL CONTINUE WITH ORDERED AMOUNT. AMOUNT OF MORPHINE VIALS LEFT ARE 5.
[2018-01-07] MEDS: MORPHINE SULFATE 4 MG/ML SYR IVP PRN (14:51)
[2018-01-07] MEDS ORDERED: diphenhydrAMINE 50 MG/ML VIAL IVP SCH (15:30)
--- NOTE | 2018-01-07 16:01 | NUR ---
SPOKE TO NURSE NAMED HAPPY FROM [facility]. GAVE REPORT ABOUT PATIENT AND MANAGER RN TIME AT 4:10. ACCEPTING PHYSICIAN IS DR. ROGER. PATIENTS ROOM IS 32 BED B. WILL CONTINUE TO MONITOR PATIENT.
--- NOTE | 2018-01-07 16:44 | NUR ---
SPOKE TO GREGORY FROM [facility] AND GAVE HIM REPORT REGARDING PATIENT. PATIENT LEFT IN STABLE CONDITION WITH ALL BELONGINGS VIA GURNEY. PATIENT ACCOMPANIED BY FAMILY MEMBERS. ALL DOCUMENTS SIGNED BY PATIENT'S FAMILY MEMBER. PATIENT LEFT WITH IV IN PLACE AND ALEXANDER CATHETER IN PLACE.
--- NOTE | 2018-01-07 16:56 | NUR ---
CALLED [employer] TO RETURN THE BED SPOKE WITH [employer] CONFIRMATION #[id number] THE TECH WILL COME TO PICK IT UP NO TIME FRAME GIVEN
== END 2018-01-07 16:45 | disposition hospice, home (50) | DRG 871 ==
LOC: MED 21:33 → MTU 01-04 02:10
PROVIDERS: ADMIT Family Medicine; ATTEND Family Medicine
DX: A41.9 Sepsis, unspecified organism (principal); N17.0 Acute kidney failure with tubular necrosis; J96.01 Acute respiratory failure with hypoxia; J69.0 Pneumonitis due to inhalation of food and vomit; L89.122 Pressure ulcer of left upper back, stage 2; E43 Unspecified severe protein-calorie malnutrition; R53.2 Functional quadriplegia; L89.154 Pressure ulcer of sacral region, stage 4; J96.21 Acute and chronic respiratory failure with hypoxia; F72 Severe intellectual disabilities; J44.1 Chronic obstructive pulmonary disease with (acute) exacerbation; Z68.1 Body mass index [BMI] 19.9 or less, adult; R65.20 Severe sepsis without septic shock; I10 Essential (primary) hypertension; E02 Subclinical iodine-deficiency hypothyroidism; Z51.5 Encounter for palliative care; E11.9 Type 2 diabetes mellitus without complications; M62.50 Muscle wasting and atrophy, not elsewhere classified, unspecified site; D50.9 Iron deficiency anemia, unspecified; E83.42 Hypomagnesemia; E87.6 Hypokalemia; M24.552 Contracture, left hip; M24.551 Contracture, right hip; M24.562 Contracture, left knee; M24.561 Contracture, right knee; Z22.322 Carrier or suspected carrier of Methicillin resistant Staphylococcus aureus
CPT/HCPCS: 36415; 36600; 71045; 80048; 80053; 81003; 82150; 82607; 82728; 82746; 82803; 82948; 83036; 83540; 83605; 83690; 83735; 83880; 84100; 84439; 84443; 84484; 85025; 85045; 85610; 85730; 86886; 86900; 86901; 87040; 87081; 92610; 93005; 94640; 96361; 96365; 97799; 99285; C1758; J1200; J1650; J1815; J2001; J2270; J2543; J2916; J3475; J3480; J7030; J7042; J7060; J7620